=== PATIENT | female | born 1980 | race American Indian/Alaskan Native ===

== ENCOUNTER 2018-08-20 11:03 | Emergency (ER) | payer SELFPAY ==
[2018-08-20 11:04] VITALS: BMI 26.6
[2018-08-20 11:12] VITALS: RESP 16
[2018-08-20] MEDS ORDERED: Sodium Chloride 0.9% 1,000 ML IV ONE (11:17)
--- NOTE | 2018-08-20 11:51 | C.PDOC ---
History Of Present Illness 38 y/o female pt presents to the ER with significant other c/o episode of fatigue. Pt's significant other reports that pt was at court when she felt tired and said "she got weird" and then started shaking. Significant other states that she then sat pt down on wheel chair and talked to her. Pt did not have LOC. Significant other also [facility] reports being tired and seemed "out of it" . She did not have LOC, post-ictal period, urine or fecal incontinece Pt has no other complaints and denies head injury, neck pain, head pain, UTI sx, weakness, numbness, anxiety, hx of seizure or postitcal period. <Mila Ledezma - Last Filed: 08/20/18 19:03> History Per: Patient History/Exam Limitations: no limitations Recent Seizure Activity Began: Hours Ago: Number Of Seizures: One <Mila Ledezma - Last Filed: 08/20/18 19:03> <Maame Babin - Last Filed: 08/22/18 18:50> Time Seen by Provider: 08/20/18 11:07 Chief Complaint (Nursing): Seizure Past Medical History Reviewed: Historical Data, Nursing Documentation, Vital Signs Vital Signs: Last Vital Signs Temp 98.1 F 08/20/18 11:06 Pulse 83 08/20/18 11:06 Resp 16 08/20/18 11:06 BP 129/90 08/20/18 11:06 Pulse Ox 98 08/20/18 11:06 - Medical History PMH: CAD, HTN - [facility] Procedures INJECT/INFUSE ELECTROLYT (06/30/14) INJECT/INFUSE NEC (06/30/14) REMOV INTRALUM EAR FB (03/15/14) - Social History Hx Tobacco Use: Yes Hx Alcohol Use: Yes Hx Substance Use: No (DENIES) - Immunization History Hx Tetanus Toxoid Vaccination: No Hx Influenza Vaccination: No Hx Pneumococcal Vaccination: No <Mila Ledezma - Last Filed: 08/20/18 19:03> Vital Signs: Last Vital Signs Temp 98.4 F 08/20/18 15:00 Pulse 82 08/20/18 15:00 Resp 16 08/20/18 15:00 BP 122/84 08/20/18 15:00 Pulse Ox 98 08/20/18 19:09 - [facility] Procedures INJECT/INFUSE ELECTROLYT (06/30/14) INJECT/INFUSE NEC (06/30/14) REMOV INTRALUM EAR FB (03/15/14) <Maame Babin - Last Filed: 08/22/18 18:50> Review Of Systems Constitutional: Positive for: Other (fatigue; no hx of seizure ). Negative for: Fever, Chills Eyes: Negative for: Pain ENT: Negative for: Ear Pain Cardiovascular: Negative for: Chest Pain Respiratory: Negative for: Cough, Shortness of Breath, SOB with Excertion, Wheezing Gastrointestinal: Negative for: Nausea, Vomiting, Abdominal Pain, Diarrhea, Constipation Genitourinary: Negative for: Dysuria, Frequency, Incontinence, Hematuria Musculoskeletal: Negative for: Neck Pain Neurological: Negative for: Weakness, Numbness, Headache, Other (postictal period ) Psych: Negative for: Anxiety <Mila Ledezma - Last Filed: 08/20/18 19:03> Physical Exam - Physical Exam Appears: Non-toxic, No Acute Distress, Other (bizarre affect) Skin: Warm, Dry Head: Atraumatic, Normacephalic Eye(s): bilateral: Normal Inspection, PERRL, EOMI Neck: Normal ROM, Supple Chest: Symmetrical Cardiovascular: Rhythm Regular Respiratory: Normal Breath Sounds Gastrointestinal/Abdominal: Soft, No Tenderness Back: Normal Inspection, No CVA Tenderness Extremity: Normal ROM (x4) Neurological/Psych: Oriented x3, Normal Speech, Normal Cognition, Normal Motor, Normal Sensation Gait: Steady <Mila Ledezma - Last Filed: 08/20/18 19:03> ED Course And Treatment - Laboratory Results Result Diagrams: 08/20/18 12:05 08/20/18 12:51 O2 Sat by Pulse Oximetry: 98 (RA) Pulse Ox Interpretation: Normal <Mila Ledezma Last Filed: 08/20/18 19:03> - Laboratory Results Result Diagrams: 08/20/18 12:05 08/20/18 12:51 Lab Results: Total Bilirubin 0.3 mg/dL (0.2-1.3) 08/20/18 12:51 AST 22 U/L (14-36) 08/20/18 12:51 ALT 8 U/L (9-52) L 08/20/18 12:51 Alkaline Phosphatase 94 U/L (38-126) 08/20/18 12:51 Total Protein 8.0 g/dL (6.3-8.3) 08/20/18 12:51 Albumin 4.2 g/dL (3.5-5.0) 08/20/18 12:51 Globulin 3.8 gm/dL (2.2-3.9) 08/20/18 12:51 Albumin/Globulin Ratio 1.1 (1.0-2.1) 08/20/18 12:51 Urine Color Yellow (YELLOW) 08/20/18 12:24 Urine Clarity Hazy (Clear) 08/20/18 12:24 Urine pH 7.0 (5.0-8.0) 08/20/18 12:24 Ur Specific [place] 1.015 (1.003-1.030) 08/20/18 12:24 Urine Protein Negative mg/dL (NEGATIVE) 08/20/18 12:24 Urine Glucose (UA) Negative mg/dL (Normal) 08/20/18 12:24 Urine Ketones Negative mg/dL (NEGATIVE) 08/20/18 12:24 Urine Blood Trace-lysed (NEGATIVE) 08/20/18 12:24 Urine Nitrate Positive (NEGATIVE) H 08/20/18 12:24 Urine Bilirubin Negative (NEGATIVE) 08/20/18 12:24 Urine Urobilinogen 0.2 mg/dL (0.2-1.0) 08/20/18 12:24 Ur Leukocyte Esterase Small Jacob/uL (Negative) 08/20/18 12:24 Urine WBC (Auto) 52 /hpf (0-5) H 08/20/18 12:24 Urine RBC (Auto) 1 /hpf (0-3) 08/20/18 12:24 Ur Squamous Epith Cells 6 /hpf (0-5) H 08/20/18 12:24 Urine Bacteria Occ (<OCC) H 08/20/18 12:24 <Maame Babin - Last Filed: 08/22/18 18:50> Medical Decision Making Medical Decision Making: Impression: s/p seizure Plans: -- chem labs -- blood work -- EKG -- CXR -- IV fluids 12:09PM EKG shows NSR at 84bpm. 1:12PM Cxray negative. Labs show worsening renal function (baseline 1.4) and UTI Administered IV rocephin. Urine culture sent. Pending CT Abdomen/Pelvis Accession No. : [id number] Patient Name / ID : SANTI HORNER / [id number] Exam Date : 08/20/2018 13:39:41 ( Approved ) Study Comment : Sex / Age : F / 38Y Creator : Audrey Carbajal Dictator : Alisha Moran MD [employer] Admin : [email or web address] Application Developer : Alisha Moran MD Approver2 : Report Date : 08/20/2018 14:00:49 My Comment : Date of service: 2018-08-20 13:39:41 PROCEDURE: CT Abdomen and Pelvis without intravenous contrast HISTORY: hematuria, wbc 19, flank pain COMPARISON: None. TECHNIQUE: Axial CT scan the abdomen and pelvis was performed without administration of intravenous contrast. Coronal and sagittal reformatted images were performed. Radiation dose: Total exam DLP = 631.03 mGy-cm. This CT exam was performed using one or more of the following dose reduction techniques: Automated exposure control, adjustment of the mA and/or kV according to patient size, and/or use of iterative reconstruction technique. FINDINGS: LOWER THORAX: There is subsegmental atelectasis in the right middle lobe. The lung bases are clear. LIVER: Normal in size. No gross lesion or ductal dilatation. GALLBLADDER AND BILE DUCTS: No calcified gallstones. PANCREAS: Normal in size. No gross lesion or ductal dilatation. SPLEEN: Normal in size. ADRENALS: No discrete nodule. KIDNEYS AND URETERS: The right kidney is normal in size without nephrolithiasis or hydronephrosis. There is cortical scarring in the left lower pole. 5 mm nonobstructing stone in the left lower pole. No hydronephrosis. VASCULATURE: Normal in caliber. No aortic aneurysm. No aortic atherosclerotic calcification or mural plaque present. BOWEL: The small bowel loops are normal in caliber. There is scattered sigmoid diverticulosis without CT evidence for acute diverticulitis. No bowel dilatation or obstruction. APPENDIX: Normal appendix. PERITONEUM: No free fluid. No free air. LYMPH NODES: No enlarged lymph nodes. BLADDER: Well distended and normal in appearance. REPRODUCTIVE: The uterus is normal in size. There is a 4.7 x 3.0 cm complicated cyst in the right ovary. There are multiple phleboliths in the pelvis. BONES: No acute fracture. Within normal limits for the patient's age with OTHER FINDINGS: None. IMPRESSION: 1. No evidence of hydronephrosis. No right nephrolithiasis. Evaluation of pyelonephritis is limited on noncontrast CT examination. 2. 5 mm nonobstructing stone in the lower pole of the left kidney. Cortical scarring in the left lower pole, sequela of remote infection/inflammation. 3. 4.7 x 3.0 cm complicated cyst in the right ovary. Correlation and short- term follow-up with pelvic ultrasound is recommended to assess stability/resolution. Presentation not consistent with seizure. No evidence of post-ictal period. She was given copy of CT to follow-up as outpatient. On reevaluation she feels better. She was given neuro follow-up. <Mila Ledezma - Last Filed: 08/20/18 19:03> Disposition - Disposition Disposition Time: 14:31 <Mila Ledezma - Last Filed: 08/20/18 19:03> <Maame Babin - Last Filed: 08/22/18 18:50> - Disposition Referrals: Ramana Squires MD [Staff Provider] - Disposition: HOME/ ROUTINE Condition: GOOD Additional Instructions: Follow up with Dr. Squires for further evaluation of seizure like episodes. Follow-up with PMD for abnormalities found on CT. See attached report. Take full course of antibiotics for uti. Avoid PCP. Return to ED if condition worsens. Prescriptions: Cephalexin [cephalexin] 500 mg PO BID #20 cap Instructions: Urinary Tract Infections in Adults, Ovarian Cysts, Kidney Failure, Seizures Forms: [facility] (Kyrgyz) - Clinical Impression Clinical Impression: CKD (chronic kidney disease), UTI (urinary tract infection), Ovarian cyst, Seizure, Renal stones, PCP abuse - Scribe Statement The provider has reviewed the documentation as recorded by the Scribe Diana Do Provider Attestation: All medical record entries made by the Scribe were at my direction and personally dictated by me. I have reviewed the chart and agree that the record accurately reflects my personal performance of the history, physical exam, me dical decision making, and the department course for this patient. I have also personally directed, reviewed, and agree with the discharge instructions and disposition. <Mila Ledezma - Last Filed: 08/20/18 19:03> Addendum Addendum: 08/22/18 18:49 Micro called back with UCx (+) ESBL E coli Results review with patient, abx changed to Macrobid, according to sensitivity. Rx sent to [facility] [place] [facility]. <Maame Babin - Last Filed: 08/22/18 18:50>
[2018-08-20 12:19] LABS: BASO # 0.1 K/uL (0.0-0.2); BASO % 0.4 % (0.0-2.0); EOS # 0.2 K/uL (0.0-0.7); HEMOGLOBIN 12.8 g/dL (11.0-16.0); LYMPH # 2.6 K/uL (1.0-4.3); LYMPH % 12.9 % (20.0-40.0); MEAN CELL VOLUME 91.3 fL (81.0-99.0); MEAN CORPUSCULAR HEMOGLOBIN 29.3 pg (27.0-31.0); MEAN CORPUSCULAR HGB CONC 32.1 g/dL (33.0-37.0); MEAN PLATELET VOLUME 9.9 fL (7.2-11.7); MONO # 1.4 K/uL (0.0-0.8); NEUT # 15.6 K/uL (1.8-7.0); NEUT % 78.7 % (50.0-75.0); RBC 4.36 Mil/uL (3.80-5.20); RED CELL DISTRIBUTION WIDTH 13.8 % (11.5-14.5); WHITE BLOOD COUNT 19.8 K/uL (4.8-10.8)
[2018-08-20 12:32] LABS: SQUAMOUS EPITHIAL 6 /hpf (0-5); URINE BACTERIA OCC (<OCC)
[2018-08-20 12:35] LABS: URINE BILIRUBIN NEGATIVE (NEGATIVE); URINE CLARITY Hazy (Clear); URINE COLOR YELLOW (YELLOW); URINE GLUCOSE (UA) NEGATIVE (Normal)
[2018-08-20 12:36] LABS: URINE BLOOD TRACE-LYSED (NEGATIVE); URINE LEUKOCYTE ESTERASE SMALL Leu/uL (Negative); URINE PROTEIN NEGATIVE (NEGATIVE); URINE UROBILINOGEN 0.2 mg/dL (0.2-1.0)
--- NOTE | 2018-08-20 13:09 | RAD ---
HISTORY: ?seizure COMPARISON: None available. TECHNIQUE: Chest, one view. FINDINGS: LUNGS: No focal consolidation. Please note that chest x-ray has limited sensitivity for the detection of pulmonary masses. PLEURA: No significant pleural effusion identified. No definite pneumothorax . CARDIOVASCULAR: Heart size appears within normal limits. No significant atherosclerotic calcification present. OSSEOUS STRUCTURES: No acute osseous abnormality identified. VISUALIZED UPPER ABDOMEN: Unremarkable. OTHER FINDINGS: None. IMPRESSION: No focal consolidation.
[2018-08-20 13:10] LABS: ALB/GLOB RATIO 1.1 (1.0-2.1); ALBUMIN 4.2 g/dL (3.5-5.0); ALT/SGPT 8 U/L (9-52); AST/SGOT 22 U/L (14-36); BLOOD UREA NITROGEN 34 mg/dL (7-17); CALCIUM 9.3 mg/dl (8.6-10.4); GFR NON-AFRICAN AMERICAN 33
[2018-08-20] MEDS ORDERED: cefTRIAXone IV 1 gm in Dextros 50 ML IVPB STA (13:16)
[2018-08-20 13:17] LABS: OPIATES, UR NEGATIVE (NEGATIVE)
[2018-08-20 13:28] LABS: BARBITURATES, UR NEGATIVE (NEGATIVE); BENZODIAZEPINES, UR NEGATIVE (NEGATIVE)
[2018-08-20 13:29] LABS: PHENCYCLIDINE, UR POSITIVE (NEGATIVE)
--- NOTE | 2018-08-20 14:20 | CT ---
Date of service: 2018-08-20 13:39:41 PROCEDURE: CT Abdomen and Pelvis without intravenous contrast HISTORY: hematuria, wbc 19, flank pain COMPARISON: None. TECHNIQUE: Axial CT scan the abdomen and pelvis was performed without administration of intravenous contrast. Coronal and sagittal reformatted images were performed. Radiation dose: Total exam DLP = 631.03 mGy-cm. This CT exam was performed using one or more of the following dose reduction techniques: Automated exposure control, adjustment of the mA and/or kV according to patient size, and/or use of iterative reconstruction technique. FINDINGS: LOWER THORAX: There is subsegmental atelectasis in the right middle lobe. The lung bases are clear. LIVER: Normal in size. No gross lesion or ductal dilatation. GALLBLADDER AND BILE DUCTS: No calcified gallstones. PANCREAS: Normal in size. No gross lesion or ductal dilatation. SPLEEN: Normal in size. ADRENALS: No discrete nodule. KIDNEYS AND URETERS: The right kidney is normal in size without nephrolithiasis or hydronephrosis. There is cortical scarring in the left lower pole. 5 mm nonobstructing stone in the left lower pole. No hydronephrosis. VASCULATURE: Normal in caliber. No aortic aneurysm. No aortic atherosclerotic calcification or mural plaque present. BOWEL: The small bowel loops are normal in caliber. There is scattered sigmoid diverticulosis without CT evidence for acute diverticulitis. No bowel dilatation or obstruction. APPENDIX: Normal appendix. PERITONEUM: No free fluid. No free air. LYMPH NODES: No enlarged lymph nodes. BLADDER: Well distended and normal in appearance. REPRODUCTIVE: The uterus is normal in size. There is a 4.7 x 3.0 cm complicated cyst in the right ovary. There are multiple phleboliths in the pelvis. BONES: No acute fracture. Within normal limits for the patient's age with OTHER FINDINGS: None. IMPRESSION: 1. No evidence of hydronephrosis. No right nephrolithiasis. Evaluation of pyelonephritis is limited on noncontrast CT examination. 2. 5 mm nonobstructing stone in the lower pole of the left kidney. Cortical scarring in the left lower pole, sequela of remote infection/inflammation. 3. 4.7 x 3.0 cm complicated cyst in the right ovary. Correlation and short-term follow-up with pelvic ultrasound is recommended to assess stability/resolution.
[2018-08-20 15:01] VITALS: BP 122/84; PULSE 82; TEMP 98.4
[2018-08-20 19:06] VITALS: O2SAT 98
--- NOTE | 2018-08-22 22:07 | CARD ---
APPROVED REPORT Date of service: 08/20/2018 EKG Measurement Heart [id number] MD [id number] <Conclusion> Normal sinus rhythm Possible Left atrial enlargement Borderline ECG
== END 2018-08-20 15:01 | disposition home or self-care (01) ==
LOC: C.ER 11:03
DX: N20.0 Calculus of kidney (principal); I12.9 Hypertensive chronic kidney disease with stage 1 through stage 4 chronic kidney disease, or unspecified chronic kidney disease; N18.9 Chronic kidney disease, unspecified; F16.10 Hallucinogen abuse, uncomplicated; N39.0 Urinary tract infection, site not specified; R56.9 Unspecified convulsions; N83.201 Unspecified ovarian cyst, right side; I25.10 Atherosclerotic heart disease of native coronary artery without angina pectoris; Z72.0 Tobacco use
CPT/HCPCS: 71045; 74176; 80053; 81001; 81025; 82948; 83735; 84100; 85025; 87040; 87086; 93005; 96361; 96365; 99285; G0480; J0696; J7030